=== PATIENT | female | born 1970 | race Caucasian/White ===

== ENCOUNTER 2020-11-19 16:10 | Inpatient (IN) | payer OTHER ==
[~2020-11-19] VITALS: Ht 160 cm; Wt 99.3 kg
[2020-11-19 17:00] LABS: HEMOGLOBIN 11.8 gm/dl (12.3-15.3); RED BLOOD COUNT 3.84 M/UL (4.00-5.10); WHITE BLOOD COUNT 9.3 K/UL (4.5-11.0)
[2020-11-19 17:26] LABS: BUN/CREATININE RATIO 17 (0-10)
[2020-11-19] MEDS ORDERED: CETIRIZINE HCL10 MG PO (20:48)
[2020-11-19] MEDS ORDERED: GABAPENTIN600 MG PO (20:48)
[2020-11-19] MEDS ORDERED: CALCIUM 600 MG1 EAC1 PO (20:48)
[2020-11-19] MEDS ORDERED: BACLOFEN20 MG PO (20:48)
[2020-11-19] MEDS ORDERED: HYDROCODON-ACE1 EAC2 PO (20:48)
[2020-11-19] MEDS ORDERED: SYMBICORT 16010.2 GM INH (20:49)
[2020-11-20 06:07] LABS: HEMOGLOBIN 10.1 gm/dl (12.3-15.3); WHITE BLOOD COUNT 9.8 K/UL (4.5-11.0)
[2020-11-20 06:14] LABS: RED BLOOD COUNT 3.37 M/UL (4.00-5.10)
[2020-11-20 12:43] LABS: ACINETOBACTER BAUMANNII Not Detected (Negative); CANDIDA ALBICANS Not Detected (Negative); CANDIDA KRUSEI Not Detected (Negative); CANDIDA TROPICALIS Not Detected (Negative); ENTEROCOCCUS Not Detected (Negative); HAEMOPHILUS INFLUENZAE Not Detected (Negative); KLEBSIELLA OXYTOCA Not Detected (Negative); KLEBSIELLA PNEUMONIAE Not Detected (Negative); KPC-CARBAPENEM-RESISTANCE GENE Not Detected (Negative); PROTEUS Not Detected (Negative); PSEUDOMONAS AERUGINOSA Not Detected (Negative); SERRATIA MARCESANS Not Detected (Negative); STAPHYLOCOCCUS Not Detected (Negative); STAPHYLOCOCCUS AUREUS Not Detected (Negative); STREP AGALACTIAE (GROUP B) Not Detected (Negative); STREP PYOGENES (GROUP A) Not Detected (Negative); STREPTOCOCCUS Not Detected (Negative); mecA (METHICILLIN RESIST GENE Not Detected (Negative); vanA/B (VANCOMYCIN RESIST GENE Not Detected (Negative)
[2020-11-20 14:01] LABS: ESCHERICHIA COLI DETECTED (Negative)
[2020-11-21 02:30] LABS: HEMOGLOBIN 9.7 gm/dl (12.3-15.3); RED BLOOD COUNT 3.22 M/UL (4.00-5.10); WHITE BLOOD COUNT 9.3 K/UL (4.5-11.0)
--- NOTE | 2020-11-21 17:54 | NUR ---
PATIENT WAS ARGUING WITH HER AND TRYING TO GET UP UNASSISTED WHEN HE WAS TRYING TO LEAVE. SHE WANTED SOMEONE TO STAY WITH HER BUT NO FAMILY WAS AVAILABLE. SHE WAS PULLING AT HER IV AND CRYING THAT SHE COULDN'T REST AND THAT SHE NEEDED TO LEAVE. I GAVE THE PERSCRIBED DOSE OF HALDOL, AND NOTIFIED THE PROVIDER PER THE DOSING INSTRUCTIONS. WILL CONTINUE TO MONITOR.
--- NOTE | 2020-11-21 21:40 | NUR ---
PT TRYING TO CLIMB OUT OF BED AND PULLING AT IV LINES AND F/C. NOTIFIED DR LICEA AND RECIEVED ORDERS. WILL CONTINUE TO MONITOR
--- NOTE | 2020-11-21 23:44 | NUR ---
pt being combative with staff. pulling at f/c and ivs. trying to climb out of bed. notified dr roblero and recieved orders. will continue to monitor.
--- NOTE | 2020-11-22 04:47 | NUR ---
NOTIFIED DR CARLSON THAT PT RECIEVED 2MG HALDOL ORDERED. RECIEVED NO NEW ORDERS. WILL CONTINUE TO MONITOR.
[2020-11-22 05:12] LABS: HEMOGLOBIN 9.5 gm/dl (12.3-15.3); RED BLOOD COUNT 3.18 M/UL (4.00-5.10); WHITE BLOOD COUNT 9.7 K/UL (4.5-11.0)
--- NOTE | 2020-11-22 20:23 | NUR ---
PT PULLING AT IV LINES AND F/C. TRYING TO CLIMB OUT OF BED. SITTER PRESENT AT BEDSIDE. NOTIFIED DR CARLSON AND RECIEVED ORDERS. WILL CONTINUE TO MONITOR.
--- NOTE | 2020-11-22 21:42 | NUR ---
PT KICKING LEGS INTO SIDE RAILS. NOTIFIED DR CARLSON AND RECIEVED ORDERS. WILL CONTINUE TO MONITOR.
--- NOTE | 2020-11-22 22:30 | NUR ---
PT'S SPOUSE TO FLOOR. RESTRAINTS REMOVED. PT FREE OF S/SX OF INJURY OR DISTRESS. SITTER PRESENT AT BEDSIDE. WILL CONTINUE TO MONITOR.
--- NOTE | 2020-11-23 03:25 | NUR ---
pt started pulling at lines and attemtng to climb out of bed. spouse and sitter present at bedside. notified md and recieved orders. will continue to monitor.
[2020-11-23 11:47] LABS: HEMOGLOBIN 9.9 gm/dl (12.3-15.3); RED BLOOD COUNT 3.31 M/UL (4.00-5.10); WHITE BLOOD COUNT 9.8 K/UL (4.5-11.0)
[2020-11-23 12:17] LABS: BUN/CREATININE RATIO 28 (0-10)
--- NOTE | 2020-11-23 15:52 | NUR ---
PATIENT STILL COMBATIVE AND CONFUSED. UNABLE TO RECIEVE IV THERAPY DUE TO PULLING AGAINST RESTRAINTS OCCLUDES FLOW OF MEDICATIONS CAUSING PUMP TO STOP. CALLED DR. HOUSE TO INFORM HIM OF SITUATION WITH PAIENT. NURSE SUGGESTED PATIENT BE MOVED TO A FLOOR WITH HIGHER ACCUITY FOR SEDATION SO SHE COULD RECIEVE NECESSARY IV MEDIATIONS. DR. HOUSE SUGESTED GIVING ANOTHER DOSE OF HALDOL THEN CALLING HIM ONE HOUR POST. HALDOL WAS GIVEN AND PROVIDER WAS CALLED ONE HOUR POST. NO ANSWER. MESSAGE WITH CALL BACK INFO LEFT. WILL CONTINUE TO MONITOR.
[2020-11-24 03:44] LABS: HEMOGLOBIN 9.6 gm/dl (12.3-15.3); RED BLOOD COUNT 3.24 M/UL (4.00-5.10)
[2020-11-24 04:22] LABS: BUN/CREATININE RATIO 25 (0-10)
[2020-11-25 07:22] LABS: HEMOGLOBIN 9.2 gm/dl (12.3-15.3); RED BLOOD COUNT 3.16 M/UL (4.00-5.10); WHITE BLOOD COUNT 12.6 K/UL (4.5-11.0)
[2020-11-25 07:52] LABS: BUN/CREATININE RATIO 21 (0-10)
[2020-11-26 06:51] LABS: HEMOGLOBIN 9.8 gm/dl (12.3-15.3); RED BLOOD COUNT 3.28 M/UL (4.00-5.10); WHITE BLOOD COUNT 11.7 K/UL (4.5-11.0)
[2020-11-26 07:20] LABS: BUN/CREATININE RATIO 18 (0-10)
[2020-11-27 05:55] LABS: HEMOGLOBIN 10.6 gm/dl (12.3-15.3); WHITE BLOOD COUNT 10.4 K/UL (4.5-11.0)
[2020-11-27 06:02] LABS: RED BLOOD COUNT 3.61 M/UL (4.00-5.10)
[2020-11-27 06:11] LABS: BUN/CREATININE RATIO 14 (0-10)
[2020-11-28 06:48] LABS: HEMOGLOBIN 10.8 gm/dl (12.3-15.3); RED BLOOD COUNT 3.68 M/UL (4.00-5.10); WHITE BLOOD COUNT 11.1 K/UL (4.5-11.0)
[2020-11-28 07:12] LABS: BUN/CREATININE RATIO 13 (0-10)
[2020-11-28] MEDS ORDERED: ELIQUIS2.5 MG PO (12:28)
[2020-11-28] MEDS ORDERED: OMNICEF 300 MG300 MG PO (12:28)
[2020-11-28] MEDS ORDERED: BACLOFEN10 MG PO (12:28)
[2020-11-28] MEDS ORDERED: NICOTINE PATCH1 EAC2 TOP (12:28)
--- NOTE | 2020-11-28 13:37 | NUR ---
ATTEMPTED TO CALL [facility] TO SET UP SERVICES FOR PT. THERE WAS NO ANSWER TODAY. SUBHASH PANG RN (SLAT PICKLER) SAID TO PUT IN A CASE MANAGEMENT CONSULT AND TO FOLLOW UP TOMORROW WHEN I AM HERE. PT. DOES NOT NEED NURSING CARE...JUST PT....NO ANTIBIOTICS OR OTHER MEDS EITHER. SUBHASH SAID IT WAS OK TO LET THE PATIENT GO HOME THAT CASE MANAGEMENT COULD HELP SET UP SERVICES TOMORROW.
== END 2020-11-28 14:55 | disposition home health service (06) | DRG 492 ==
LOC: ER1 16:10 → M/S 20:28 → CDU 20:28 → M/S 11-20 03:08
PROVIDERS: Internal Medicine; Orthopaedic Surgery; Physician Assistant; Physician Assistant Medical; ADMIT Internal Medicine
PROC: 0QSH04Z Reposition Left Tibia with Internal Fixation Device, Open Approach (ICD-10-PCS; 2020-11-20)
PROC: 0QSK04Z Reposition Left Fibula with Internal Fixation Device, Open Approach (ICD-10-PCS; principal; 2020-11-20 14:55)
DX: S82.492A Other fracture of shaft of left fibula, initial encounter for closed fracture (principal); G93.41 Metabolic encephalopathy; J18.9 Pneumonia, unspecified organism; A41.51 Sepsis due to Escherichia coli [E. coli]; S32.000A Wedge compression fracture of unspecified lumbar vertebra, initial encounter for closed fracture; S22.050A Wedge compression fracture of T5-T6 vertebra, initial encounter for closed fracture; N17.9 Acute kidney failure, unspecified; F05 Delirium due to known physiological condition; N30.00 Acute cystitis without hematuria; J44.0 Chronic obstructive pulmonary disease with (acute) lower respiratory infection; E87.1 Hypo-osmolality and hyponatremia; Z20.822 Contact with and (suspected) exposure to COVID-19; W01.0XXA Fall on same level from slipping, tripping and stumbling without subsequent striking against object, initial encounter; I12.9 Hypertensive chronic kidney disease with stage 1 through stage 4 chronic kidney disease, or unspecified chronic kidney disease; E78.5 Hyperlipidemia, unspecified; F17.210 Nicotine dependence, cigarettes, uncomplicated; G47.00 Insomnia, unspecified; S82.202A Unspecified fracture of shaft of left tibia, initial encounter for closed fracture; N18.9 Chronic kidney disease, unspecified; E87.6 Hypokalemia; E66.9 Obesity, unspecified; Z98.890 Other specified postprocedural states; Y92.89 Other specified places as the place of occurrence of the external cause; Y99.8 Other external cause status; Z79.899 Other long term (current) drug therapy; Z68.39 Body mass index [BMI] 39.0-39.9, adult
CPT/HCPCS: 12001; 29515; 36415; 36600; 51702; 70450; 71045; 72125; 72128; 72131; 72170; 73560; 73590; 73700; 76000; 80048; 80053; 80202; 80307; 81001; 82140; 82550; 82553; 82803; 82962; 83605; 83735; 83874; 84132; 84439; 84443; 84484; 85025; 85027; 85610; 86850; 86900; 86901; 87040; 87077; 87086; 87150; 87186; 90471; 90715; 93005; 94640; 94760; 97162; 97166; 97530-GP-CQ; 99285; C1713; J0456; J0696; J1100; J1335; J1630; J1650; J2001; J2185; J2270; J2405; J2704; J3010; J3370; J3480; J3486; J7030; J7070; J7120; U0002